=== PATIENT | male | born 1935 | race Caucasian/White ===

== ENCOUNTER 2019-12-03 10:06 | Outpatient (CLI) | payer MEDICARE, BC, SELFPAY ==
[2019-12-03 10:54] LABS: Hematocrit 42.6 % (42.0-52.0); Hemoglobin 13.5 g/dL (14.0-18.0); Mean Corpuscular HGB Conc 31.7 g/dl (32-36); Mean Corpuscular Hemoglobin 31.3 pg (26-34); Mean Corpuscular Volume 98.8 fl (80-100); Mean Platelet Volume 9.4 fl (7.4-10.4); Platelet Count Result 228 k/mm3 (150-375); Red Blood Count 4.31 M/mm3 (4.6-6.20); Red Cell Distribution Width 13.2 % (11.5-14.5); White Blood Count 5.5 K/mm3 (4.5-10.0)
[2019-12-03 10:58] LABS: Add Urine Microscopic? YES; Appearance Urine Clear (Clear); Bilirubin Urine Negative (Negative); Blood Urine 1+ (Negative); Color Urine Yellow (Yellow); Glucose Urine UA Negative (Negative); Ketones Urine Negative (Negative); Leukocyte Esterase Ur Negative LEU/UL (NEGATIVE); Nitrate Urine Negative (Negative); Protein Urine Negative (Negative); Specific Grav Ur 1.016 (1.001-1.035); Squamous Epithelial Cell Urine Rare /hpf (Few); Urobilinogen Urine Negative mg/dL (<2.0); WBC Urine 0-3 /hpf (0-3)
[2019-12-03 11:02] LABS: Alanine Aminotransferase 15 U/L (4-50); Albumin Level 3.9 g/dL (3.5-5.1); Alkaline Phosphatase 70 U/L (38-126); Aspartate Amino Transferase 25 U/L (17-59); Bilirubin,Total 0.7 mg/dL (0.2-1.3); Blood Urea Nitrogen 14 mg/dL (9-20); Calcium 9.3 mg/dL (8.4-10.2); Carbon Dioxide 28 mmol/L (22-30); Chloride 101 mmol/L (98-107); Cholesterol 167 mg/dL (0-200); Estimated Glomerular Filt Rate > 60; Glucose 102 mg/dL (75-110); HDL Direct 53 mg/dL; Potassium 4.1 mmol/L (3.4-5.0); Sodium 141 mmol/L (137-145); Triglycerides 168 mg/dL (<150)
[2019-12-03 11:13] LABS: LDL Cholesterol Direct 89 mg/dL
[2019-12-03 12:08] LABS: Folic Acid 17.2 ng/mL (2.76->20)
== END 2019-12-03 10:07 | disposition home or self-care (01) ==
PROVIDERS: PCP Family Medicine; Visit Provider Physician Assistant
DX: D50.0 Iron deficiency anemia secondary to blood loss (chronic) (principal); E53.8 Deficiency of other specified B group vitamins; E78.5 Hyperlipidemia, unspecified; I10 Essential (primary) hypertension; I25.10 Atherosclerotic heart disease of native coronary artery without angina pectoris
CPT/HCPCS: 36415; 80053; 80061; 81001; 82607; 82746; 85027

== ENCOUNTER 2020-05-12 10:04 | Outpatient (CLI) | payer MEDICARE, BC, SELFPAY ==
[2020-05-12 10:36] LABS: Basophils Percent Auto 0.4 % (0.2-1.2); Eosinophils Absolute Auto 0.2 K/mm3 (0-0.3); Eosinophils Percent Auto 3.4 % (0-4.4); Immature Granulocyte Absolute 0.03 K/mm3 (0.00-0.031); Immature Granulocyte Percent A 0.5 % (0-0.5); Lymphocytes Absolute Auto 1.43 K/mm3 (0.9-3.2); Lymphocytes Percent Auto 25.6 % (18.3-44.2); Mean Corpuscular HGB Conc 31.8 g/dl (32-36); Mean Corpuscular Hemoglobin 30.3 pg (26-34); Mean Corpuscular Volume 95.2 fl (80-100); Mean Platelet Volume 9.4 fl (7.4-10.4); Monocytes Absolute Auto 0.5 K/mm3 (0.1-0.6); Neutrophils Absolute Auto 3.4 K/mm3 (1.3-6.7); Neutrophils Percent Auto 61.1 % (45.5-73.1); Platelet Count Result 235 k/mm3 (150-375); Red Blood Count 4.62 M/mm3 (4.6-6.20); Red Cell Distribution Width 13.8 % (11.5-14.5); White Blood Count 5.6 K/mm3 (4.5-10.0)
[2020-05-12 10:43] LABS: Add Urine Microscopic? YES; Appearance Urine Clear (Clear); Bilirubin Urine Negative (Negative); Blood Urine 2+ (Negative); Color Urine Yellow (Yellow); Glucose Urine UA Negative (Negative); Ketones Urine Negative (Negative); Leukocyte Esterase Ur Negative LEU/UL (NEGATIVE); Mucus Urine Rare /lpf; Nitrate Urine Negative (Negative); Protein Urine Negative (Negative); Specific Grav Ur 1.013 (1.001-1.035); Squamous Epithelial Cell Urine Rare /hpf (Few); Urobilinogen Urine Negative mg/dL (<2.0); WBC Urine 0-3 /hpf (0-3)
[2020-05-12 11:25] LABS: Alanine Aminotransferase 13 U/L (4-50); Alkaline Phosphatase 77 U/L (38-126); Anion Gap 14.2 mmol/L (7-16); Aspartate Amino Transferase 22 U/L (17-59); Bilirubin,Total 0.7 mg/dL (0.2-1.3); Blood Urea Nitrogen 16 mg/dL (9-20); Calcium 9.1 mg/dL (8.4-10.2); Carbon Dioxide 27 mmol/L (22-30); Chloride 102 mmol/L (98-107); Estimated Glomerular Filt Rate > 60; Glucose 116 mg/dL (75-110); Potassium 4.2 mmol/L (3.4-5.0); Sodium 139 mmol/L (137-145)
[2020-05-12 11:51] LABS: Iron 87 ug/dL (49-181)
[2020-05-12 12:30] LABS: Folic Acid 12.9 ng/mL (2.76->20)
[2020-05-12 17:18] LABS: Percent Iron Saturation 33 % (20-50)
== END 2020-05-12 10:05 | disposition home or self-care (01) ==
PROVIDERS: PCP Family Medicine; Visit Provider Physician Assistant
DX: E53.8 Deficiency of other specified B group vitamins (principal); I10 Essential (primary) hypertension; D50.0 Iron deficiency anemia secondary to blood loss (chronic); R31.9 Hematuria, unspecified
CPT/HCPCS: 36415; 80053; 81001; 82607; 82728; 82746; 83540; 83550; 85025

== ENCOUNTER 2020-11-21 09:55 | Outpatient (CLI) | payer MEDICARE, BC, SELFPAY ==
[2020-11-21 10:32] LABS: Basophils Percent Auto 0.5 % (0.2-1.2); Eosinophils Absolute Auto 0.1 K/mm3 (0-0.3); Eosinophils Percent Auto 2.4 % (0-4.4); Hematocrit 43.4 % (42.0-52.0); Hemoglobin 13.7 g/dL (14.0-18.0); Immature Granulocyte Absolute 0.04 K/mm3 (0.00-0.031); Immature Granulocyte Percent A 0.7 % (0-0.5); Lymphocytes Percent Auto 16.9 % (18.3-44.2); Mean Corpuscular HGB Conc 31.6 g/dl (32-36); Mean Corpuscular Hemoglobin 30.9 pg (26-34); Mean Corpuscular Volume 97.7 fl (80-100); Mean Platelet Volume 9.1 fl (7.4-10.4); Monocytes Absolute Auto 0.4 K/mm3 (0.1-0.6); Monocytes Percent Auto 6.4 % (2.6-8.5); Neutrophils Absolute Auto 4.3 K/mm3 (1.3-6.7); Neutrophils Percent Auto 73.1 % (45.5-73.1); Platelet Count Result 263 k/mm3 (150-375); Red Blood Count 4.44 M/mm3 (4.6-6.20); Red Cell Distribution Width 12.7 % (11.5-14.5); White Blood Count 5.9 K/mm3 (4.5-10.0)
[2020-11-21 11:05] LABS: Alanine Aminotransferase 14 U/L (4-50); Albumin Level 4.1 g/dL (3.5-5.1); Alkaline Phosphatase 79 U/L (38-126); Anion Gap 6 mmol/L (8-16); Aspartate Amino Transferase 22 U/L (17-59); Bilirubin,Total 0.5 mg/dL (0.2-1.3); Blood Urea Nitrogen 16 mg/dL (9-20); Calcium 9.3 mg/dL (8.4-10.2); Carbon Dioxide 29 mmol/L (22-30); Chloride 108 mmol/L (98-107); Estimated Glomerular Filt Rate > 60; Glucose 93 mg/dL (75-110); Potassium 3.9 mmol/L (3.4-5.0); Sodium 143 mmol/L (137-145)
[2020-11-21 12:13] LABS: Hemoglobin A1C 5.2 % (<5.7)
[2020-11-21 12:15] LABS: Folic Acid > 20.0 ng/mL (2.76->20)
[2020-11-21 12:36] LABS: Iron 64 ug/dL (49-181)
[2020-11-21 12:46] LABS: Percent Iron Saturation 22 % (20-50)
== END 2020-11-21 09:56 | disposition home or self-care (01) ==
PROVIDERS: PCP Family Medicine; Visit Provider Physician Assistant
DX: D50.0 Iron deficiency anemia secondary to blood loss (chronic) (principal); E53.8 Deficiency of other specified B group vitamins; E78.5 Hyperlipidemia, unspecified; I48.0 Paroxysmal atrial fibrillation; I50.9 Heart failure, unspecified; K21.9 Gastro-esophageal reflux disease without esophagitis; R73.01 Impaired fasting glucose
CPT/HCPCS: 36415; 80053; 82607; 82728; 82746; 83036; 83540; 83550; 85025

== ENCOUNTER 2020-12-15 13:43 | Outpatient (CLI) | payer MEDICARE, BC, SELFPAY | END 2020-12-15 13:44 | disposition home or self-care (01) | LOC: ANHCOVIDVC 13:43 | PROVIDERS: PCP Family Medicine | DX: Z23 Encounter for immunization (principal) | CPT/HCPCS: 0001A; 91300 ==

== ENCOUNTER 2021-01-05 13:46 | Outpatient (CLI) | payer MEDICARE, BC, SELFPAY | END 2021-01-05 13:47 | disposition home or self-care (01) | LOC: ANHCOVIDVC 13:47 | PROVIDERS: PCP Family Medicine | DX: Z23 Encounter for immunization (principal) | CPT/HCPCS: 0002A; 91300 ==

== ENCOUNTER 2021-05-23 13:38 | Outpatient (CLI) | payer MEDICARE, BC, SELFPAY ==
[2021-05-23 14:13] LABS: Basophils Percent Auto 0.3 % (0.2-1.2); Eosinophils Absolute Auto 0.1 K/mm3 (0-0.3); Eosinophils Percent Auto 1.5 % (0-4.4); Hemoglobin 14.1 g/dL (14.0-18.0); Immature Granulocyte Absolute 0.03 K/mm3 (0.00-0.031); Immature Granulocyte Percent A 0.4 % (0-0.5); Lymphocytes Absolute Auto 1.41 K/mm3 (0.9-3.2); Lymphocytes Percent Auto 20.9 % (18.3-44.2); Mean Corpuscular HGB Conc 31.3 g/dl (32-36); Mean Corpuscular Hemoglobin 31.5 pg (26-34); Mean Corpuscular Volume 100.7 fl (80-100); Mean Platelet Volume 9.2 fl (7.4-10.4); Monocytes Absolute Auto 0.5 K/mm3 (0.1-0.6); Monocytes Percent Auto 7.7 % (2.6-8.5); Neutrophils Absolute Auto 4.7 K/mm3 (1.3-6.7); Neutrophils Percent Auto 69.2 % (45.5-73.1); Platelet Count Result 258 k/mm3 (150-375); Red Blood Count 4.47 M/mm3 (4.6-6.20); Red Cell Distribution Width 13.2 % (11.5-14.5); White Blood Count 6.8 K/mm3 (4.5-10.0)
[2021-05-23 14:26] LABS: Alanine Aminotransferase 15 U/L (4-50); Albumin Level 4.5 g/dL (3.5-5.1); Alkaline Phosphatase 77 U/L (38-126); Anion Gap 10 mmol/L (8-16); Aspartate Amino Transferase 24 U/L (17-59); Bilirubin,Total 0.7 mg/dL (0.2-1.3); Blood Urea Nitrogen 16 mg/dL (9-20); Calcium 9.2 mg/dL (8.4-10.2); Carbon Dioxide 26 mmol/L (22-30); Chloride 101 mmol/L (98-107); Estimated Glomerular Filt Rate > 60; Glucose 94 mg/dL (65-110); Potassium 4.1 mmol/L (3.4-5.0); Sodium 137 mmol/L (137-145)
== END 2021-05-23 13:39 | disposition home or self-care (01) ==
PROVIDERS: PCP Family Medicine; Visit Provider Nurse Practitioner Family
DX: D50.0 Iron deficiency anemia secondary to blood loss (chronic) (principal); I10 Essential (primary) hypertension
CPT/HCPCS: 36415; 80053; 85025

== ENCOUNTER 2021-09-21 11:36 | Outpatient (CLI) | payer MEDICARE, BC, SELFPAY ==
[2021-09-21 12:19] LABS: Alanine Aminotransferase 14 U/L (4-50); Albumin Level 4.3 g/dL (3.5-5.1); Alkaline Phosphatase 79 U/L (38-126); Anion Gap 7 mmol/L (8-16); Aspartate Amino Transferase 23 U/L (17-59); Bilirubin,Total 0.7 mg/dL (0.2-1.3); Blood Urea Nitrogen 19 mg/dL (9-20); Calcium 9.3 mg/dL (8.4-10.2); Carbon Dioxide 28 mmol/L (22-30); Chloride 99 mmol/L (98-107); Estimated Glomerular Filt Rate > 60; Glucose 94 mg/dL (65-110); Potassium 4.7 mmol/L (3.4-5.0); Sodium 134 mmol/L (137-145)
== END 2021-09-21 11:37 | disposition home or self-care (01) ==
LOC: ANHLAB 11:40
PROVIDERS: PCP Family Medicine; Visit Provider Nurse Practitioner Family
DX: I11.0 Hypertensive heart disease with heart failure (principal)
CPT/HCPCS: 36415; 80053

== ENCOUNTER 2022-03-22 11:38 | Outpatient (CLI) | payer MEDICARE, BC, SELFPAY ==
[2022-03-22 12:12] LABS: Basophils Percent Auto 0.3 % (0.2-1.2); Eosinophils Absolute Auto 0.1 K/mm3 (0-0.3); Eosinophils Percent Auto 1.9 % (0-4.4); Hematocrit 41.9 % (42.0-52.0); Hemoglobin 13.4 g/dL (14.0-18.0); Immature Granulocyte Absolute 0.02 K/mm3 (0.00-0.031); Immature Granulocyte Percent A 0.3 % (0-0.5); Lymphocytes Absolute Auto 0.97 K/mm3 (0.9-3.2); Lymphocytes Percent Auto 15.4 % (18.3-44.2); Mean Corpuscular Hemoglobin 31.8 pg (26-34); Mean Corpuscular Volume 99.5 fl (80-100); Mean Platelet Volume 8.9 fl (7.4-10.4); Monocytes Absolute Auto 0.5 K/mm3 (0.1-0.6); Monocytes Percent Auto 8.4 % (2.6-8.5); Neutrophils Absolute Auto 4.6 K/mm3 (1.3-6.7); Neutrophils Percent Auto 73.7 % (45.5-73.1); Platelet Count Result 239 k/mm3 (150-375); Red Blood Count 4.21 M/mm3 (4.6-6.20); Red Cell Distribution Width 13.6 % (11.5-14.5); White Blood Count 6.3 K/mm3 (4.5-10.0)
[2022-03-22 12:18] LABS: Appearance Urine Slightly Cloudy (Clear); Bilirubin Urine Negative (Negative); Blood Urine 2+ (Negative); Color Urine Yellow (Yellow); Glucose Urine UA Negative (Negative); Ketones Urine Negative (Negative); Leukocyte Esterase Ur Negative LEU/UL (NEGATIVE); Nitrate Urine Negative (Negative); Protein Urine Negative (Negative); Urobilinogen Urine 0.2 mg/dL (<2.0)
[2022-03-22 12:21] LABS: Bacteria Urine Trace /hpf; RBC Urine 0-2 /hpf (0-2); Squamous Epithelial Cell Urine Rare /hpf (Few); WBC Urine 0-3 /hpf (0-3)
[2022-03-22 12:22] LABS: Add Urine Microscopic? YES
[2022-03-22 12:24] LABS: Hemoglobin A1C 5.3 % (<5.7)
[2022-03-22 12:27] LABS: Alanine Aminotransferase 13 U/L (6-50); Alkaline Phosphatase 74 U/L (38-126); Anion Gap 5 mmol/L (8-16); Aspartate Amino Transferase 18 U/L (17-59); Bilirubin,Total 0.5 mg/dL (0.2-1.3); Blood Urea Nitrogen 15 mg/dL (9-20); Calcium 8.6 mg/dL (8.4-10.2); Carbon Dioxide 29 mmol/L (22-30); Chloride 107 mmol/L (98-107); Cholesterol 156 mg/dL (0-200); Estimated Glomerular Filt Rate > 60; Glucose 80 mg/dL (65-110); HDL Direct 64 mg/dL; Potassium 3.8 mmol/L (3.4-5.0); Sodium 141 mmol/L (137-145); Triglycerides 131 mg/dL (<150)
[2022-03-22 12:39] LABS: LDL Cholesterol Direct 61 mg/dL
== END 2022-03-22 11:39 | disposition home or self-care (01) ==
LOC: ANHLAB 11:42
PROVIDERS: PCP Family Medicine; Visit Provider Nurse Practitioner Family
DX: D50.0 Iron deficiency anemia secondary to blood loss (chronic) (principal); E03.9 Hypothyroidism, unspecified; I25.10 Atherosclerotic heart disease of native coronary artery without angina pectoris; I50.9 Heart failure, unspecified; N40.0 Benign prostatic hyperplasia without lower urinary tract symptoms; R73.01 Impaired fasting glucose; E78.2 Mixed hyperlipidemia; I11.0 Hypertensive heart disease with heart failure
CPT/HCPCS: 36415; 80053; 80061; 81001; 83036; 84443; 85025

== ENCOUNTER 2022-09-17 11:37 | Outpatient (CLI) | payer MEDICARE, BC, SELFPAY ==
[2022-09-17 12:41] LABS: Basophils Percent Auto 0.3 % (0.2-1.2); Eosinophils Absolute Auto 0.3 K/mm3 (0-0.3); Eosinophils Percent Auto 4.3 % (0-4.4); Hematocrit 38.8 % (42.0-52.0); Hemoglobin 12.7 g/dL (14.0-18.0); Immature Granulocyte Absolute 0.01 K/mm3 (0.00-0.031); Immature Granulocyte Percent A 0.2 % (0-0.5); Lymphocytes Absolute Auto 1.02 K/mm3 (0.9-3.2); Lymphocytes Percent Auto 16.9 % (18.3-44.2); Mean Corpuscular HGB Conc 32.7 g/dl (32-36); Mean Corpuscular Hemoglobin 32.6 pg (26-34); Mean Corpuscular Volume 99.7 fl (80-100); Mean Platelet Volume 9.3 fl (7.4-10.4); Monocytes Absolute Auto 0.4 K/mm3 (0.1-0.6); Monocytes Percent Auto 7.1 % (2.6-8.5); Neutrophils Absolute Auto 4.3 K/mm3 (1.3-6.7); Neutrophils Percent Auto 71.2 % (45.5-73.1); Platelet Count Result 251 k/mm3 (150-375); Red Blood Count 3.89 M/mm3 (4.6-6.20); Red Cell Distribution Width 13.5 % (11.5-14.5)
[2022-09-17 12:59] LABS: Alanine Aminotransferase 14 U/L (6-50); Alkaline Phosphatase 82 U/L (38-126); Anion Gap 7 mmol/L (8-16); Aspartate Amino Transferase 22 U/L (17-59); Bilirubin,Total 0.6 mg/dL (0.2-1.3); Blood Urea Nitrogen 15 mg/dL (9-20); Calcium 8.4 mg/dL (8.4-10.2); Carbon Dioxide 28 mmol/L (22-30); Chloride 107 mmol/L (98-107); Estimated Glomerular Filt Rate > 60; Glucose 92 mg/dL (65-110); Sodium 142 mmol/L (137-145)
[2022-09-17 14:05] LABS: Folic Acid 15.6 ng/mL (2.76->20)
== END 2022-09-17 11:38 | disposition home or self-care (01) ==
PROVIDERS: PCP Family Medicine; Visit Provider Family Medicine
DX: R53.83 Other fatigue (principal); D50.0 Iron deficiency anemia secondary to blood loss (chronic); E53.8 Deficiency of other specified B group vitamins; I10 Essential (primary) hypertension
CPT/HCPCS: 36415; 80053; 82607; 82746; 84443; 85025

== ENCOUNTER 2023-05-01 11:47 | Outpatient (CLI) | payer MEDICARE, BC, SELFPAY ==
[2023-05-01 12:33] LABS: Hematocrit 40.8 % (42.0-52.0); Hemoglobin 13.1 g/dL (14.0-18.0); Mean Corpuscular HGB Conc 32.1 g/dl (32-36); Mean Corpuscular Hemoglobin 31.1 pg (26-34); Mean Corpuscular Volume 96.9 fl (80-100); Platelet Count Result 252 k/mm3 (150-375); Red Blood Count 4.21 M/mm3 (4.6-6.20); Red Cell Distribution Width 13.3 % (11.5-14.5); White Blood Count 5.4 K/mm3 (4.5-10.0)
[2023-05-01 12:34] LABS: Appearance Urine Clear (Clear); Bacteria Urine None Seen /hpf; Bilirubin Urine Negative (Negative); Blood Urine 1+ (Negative); Color Urine Yellow (Yellow); Glucose Urine UA Negative (Negative); Ketones Urine Negative (Negative); Leukocyte Esterase Ur Negative LEU/UL (NEGATIVE); Nitrate Urine Negative (Negative); Non Pathogenic Casts 0-2; Protein Urine Negative (Negative); Specific Grav Ur 1.009 (1.001-1.035); Squamous Epithelial Cell Urine None seen /hpf (Few); Urobilinogen Urine 0.2 mg/dL (<2.0); WBC Urine 0-5 /hpf (0-3); pH Urine 5.5 (5.0-9.0)
[2023-05-01 12:43] LABS: Alanine Aminotransferase 17 U/L (6-50); Alkaline Phosphatase 59 U/L (38-126); Anion Gap 5 mmol/L (8-16); Aspartate Amino Transferase 26 U/L (17-59); Bilirubin,Total 0.7 mg/dL (0.2-1.3); Blood Urea Nitrogen 17 mg/dL (9-20); Calcium 8.5 mg/dL (8.4-10.2); Carbon Dioxide 31 mmol/L (22-30); Chloride 103 mmol/L (98-107); Cholesterol 149 mg/dL (0-200); Estimated Glomerular Filt Rate > 60; Glucose 106 mg/dL (65-110); HDL Direct 65 mg/dL; Potassium 4.1 mmol/L (3.4-5.0); Sodium 139 mmol/L (137-145); Triglycerides 105 mg/dL (<150)
[2023-05-01 12:54] LABS: LDL Cholesterol Direct 55 mg/dL
[2023-05-01 13:16] LABS: Add Urine Microscopic? YES
[2023-05-01 17:49] LABS: Hemoglobin A1C 5.3 % (<5.7)
== END 2023-05-01 11:48 | disposition home or self-care (01) ==
LOC: ANHLAB 11:50
PROVIDERS: PCP Family Medicine; Visit Provider Family Medicine
DX: R73.01 Impaired fasting glucose (principal); E78.5 Hyperlipidemia, unspecified; I10 Essential (primary) hypertension
CPT/HCPCS: 36415; 80053; 80061; 81001; 83036; 84443; 85027

== ENCOUNTER 2023-11-06 12:05 | Outpatient (CLI) | payer MEDICARE, BC, SELFPAY ==
[2023-11-06 13:38] LABS: Alanine Aminotransferase 13 U/L (6-50); Albumin Level 4.1 g/dL (3.5-5.1); Alkaline Phosphatase 94 U/L (38-126); Anion Gap 6 mmol/L (8-16); Aspartate Amino Transferase 22 U/L (17-59); Bilirubin,Total 0.7 mg/dL (0.2-1.3); Blood Urea Nitrogen 18 mg/dL (9-20); Calcium 8.9 mg/dL (8.4-10.2); Carbon Dioxide 30 mmol/L (22-30); Chloride 104 mmol/L (98-107); Estimated Glomerular Filt Rate > 60; Glucose 98 mg/dL (65-110); Potassium 4.1 mmol/L (3.4-5.0); Sodium 140 mmol/L (137-145)
== END 2023-11-06 12:06 | disposition home or self-care (01) ==
PROVIDERS: PCP Family Medicine; Visit Provider Family Medicine
DX: I10 Essential (primary) hypertension (principal)
CPT/HCPCS: 36415; 80053

== ENCOUNTER 2024-05-27 11:04 | Outpatient (CLI) | payer MEDICARE, BC, SELFPAY ==
[2024-05-27 11:23] LABS: Hemoglobin 13.1 g/dL (14.0-18.0); Mean Corpuscular HGB Conc 32.8 g/dl (32-36); Mean Corpuscular Hemoglobin 32.3 pg (26-34); Mean Corpuscular Volume 98.5 fl (80-100); Mean Platelet Volume 8.7 fl (7.4-10.4); Platelet Count Result 234 k/mm3 (150-375); Red Blood Count 4.06 M/mm3 (4.6-6.20); Red Cell Distribution Width 13.8 % (11.5-14.5); White Blood Count 5.7 K/mm3 (4.5-10.0)
[2024-05-27 11:39] LABS: Alanine Aminotransferase 13 U/L (6-50); Albumin Level 4.1 g/dL (3.5-5.1); Alkaline Phosphatase 76 U/L (38-126); Anion Gap 7 mmol/L (4-12); Aspartate Amino Transferase 23 U/L (17-59); Bilirubin,Total 0.6 mg/dL (0.2-1.3); Blood Urea Nitrogen 17 mg/dL (9-20); Calcium 8.9 mg/dL (8.4-10.2); Carbon Dioxide 30 mmol/L (22-30); Chloride 101 mmol/L (98-107); Cholesterol 144 mg/dL (0-200); Estimated Glomerular Filt Rate > 60; Glucose 86 mg/dL (65-110); HDL Direct 58 mg/dL; Potassium 4.2 mmol/L (3.4-5.0); Sodium 138 mmol/L (137-145); Triglycerides 137 mg/dL (<150)
[2024-05-27 11:46] LABS: Add Urine Microscopic? YES; Appearance Urine Clear (Clear); Bacteria Urine None Seen /hpf; Bilirubin Urine Negative (Negative); Blood Urine 1+ (Negative); Color Urine Yellow (Yellow); Glucose Urine UA Negative (Negative); Ketones Urine Negative (Negative); Leukocyte Esterase Ur Negative LEU/UL (Negative); Nitrate Urine Negative (Negative); Non Pathogenic Casts 0-2; Protein Urine Negative (Negative); Specific Grav Ur 1.008 (1.001-1.035); Squamous Epithelial Cell Urine None Seen /hpf (Few); Urobilinogen Urine 0.2 mg/dL (<2.0); WBC Urine 0-5 /hpf (0-3); pH Urine 5.5 (5.0-9.0)
[2024-05-27 11:50] LABS: LDL Cholesterol Direct 56 mg/dL
== END 2024-05-27 11:05 | disposition home or self-care (01) ==
PROVIDERS: PCP Family Medicine; Visit Provider Family Medicine
DX: D50.0 Iron deficiency anemia secondary to blood loss (chronic) (principal); E78.5 Hyperlipidemia, unspecified; I10 Essential (primary) hypertension; I50.9 Heart failure, unspecified
CPT/HCPCS: 36415; 80053; 80061; 81001; 84443; 85027

== ENCOUNTER 2024-06-10 15:30 | Outpatient (CLI) | payer MEDICARE, BC, SELFPAY ==
--- NOTE | ~2024-06-10 | US_ITS ---
EXAMINATION: US soft tissue groin LT DATE: 06/10/2024 16:13 INDICATION: Left inguinal hernia. TECHNIQUE: Multiple grayscale and Doppler ultrasound images of the left groin were obtained. COMPARISON: CT abdomen and pelvis 01/15/2018 FINDINGS: There is a left inguinal hernia containing fat. IMPRESSION: 1. Left inguinal hernia containing fat. Reviewed, dictated and finalized at location A.
== END 2024-06-10 15:31 | disposition home or self-care (01) ==
PROVIDERS: PCP Family Medicine; Visit Provider Physician Assistant
DX: K40.90 Unilateral inguinal hernia, without obstruction or gangrene, not specified as recurrent (principal); R19.09 Other intra-abdominal and pelvic swelling, mass and lump
CPT/HCPCS: 76882

== ENCOUNTER 2024-07-22 08:44 | Outpatient (CLI) | payer MEDICARE, BC, SELFPAY ==
--- NOTE | ~2024-07-22 | US_ITS ---
EXAMINATION: US arterial ankle brachial ind DATE: 07/22/2024 09:58 INDICATION: Peripheral vascular disease, unspecified. Claudication. TECHNIQUE: Segmental pressures and plethysmographic and Doppler waveforms of the brachial and lower e xtremity arteries were obtained. COMPARISON: None. FINDINGS: Right and left brachial artery pressures of 147 mm Hg and 152 mm Hg, respectively, are concordant (no rmal difference <= 30 mmHg). The right ankle-brachial index (LUCERO) is 0.93 (normal >= 0.9-1.0). The right great toe-brachial index (TBI) is 0.34 (normal >= 0.65). Arterial Doppler waveforms are monophasic at the ankle. The left LUCERO is 0.93. The left TBI is 0.17. Arterial Doppler waveforms are biphasic at the ankle. IMPRESSION: 1. Mildly decreased ABIs, consistent with arterial occlusive disease. Reviewed, dictated and finalized at location A.
== END 2024-07-22 08:45 | disposition home or self-care (01) ==
PROVIDERS: PCP Family Medicine; Visit Provider Family Medicine
DX: R94.39 Abnormal result of other cardiovascular function study (principal); I73.9 Peripheral vascular disease, unspecified
CPT/HCPCS: 93922

== ENCOUNTER 2024-08-03 09:20 | Outpatient (CLI) | payer MEDICARE, BC, SELFPAY ==
--- NOTE | ~2024-08-03 | XR_ITS ---
Clinical Indication: Preoperative evaluation PA and lateral views of the chest: Comparison: 12/23/2017 Findings: There is mild hazy opacity at the left lung base, nonspecific. Right lung clear.. Cardiome diastinal silhouette is stable, status post aortic valve replacement and possible CABG. Moderate comp ression fracture of T12 noted. Impression: Focal hazy left basilar airspace opacity. Correlate for focal pneumonitis versus chronic postinflamma tory change. Possible COPD. Prior cardiac surgery, as above. T12 compression fracture. Reviewed, dictated and finalized at location . Impression: Focal hazy left basilar airspace opacity. Correlate for focal pneumonitis versu s chronic postinflammatory change. Possible COPD. Prior cardiac surgery, as above. T12 compression fracture.
--- NOTE | 2024-08-03 09:30 | ECG_ITS ---
Test Date: 2024-08-03 09:51:04 Measurements Intervals [place] Rate: 63 P: -17 SC: 161 QRS: -47 QRSD: 118 T: 14 QT: 369 QTc: 379 Interpretive Statements SINUS RHYTHM PATTERN CONSISTENT WITH PULMONARY DISEASE LEFT ANTERIOR FASCICULAR BLOCK [QRS AXIS <= -45, QR IN I, RS IN II] NONSPECIFIC T-WAVE ABNORMALITY ABNORMAL ECG No previous ECG available for comparison Electronically Signed On 08-03-2024 10:48:19 CDT by Jez Guo M.D.
[2024-08-03 10:00] LABS: Basophils Percent Auto 0.4 % (0.2-1.2); Eosinophils Absolute Auto 0.2 K/mm3 (0-0.3); Eosinophils Percent Auto 3.4 % (0-4.4); Hematocrit 37.9 % (42.0-52.0); Hemoglobin 12.2 g/dL (14.0-18.0); Immature Granulocyte Absolute 0.02 K/mm3 (0.00-0.031); Immature Granulocyte Percent A 0.4 % (0-0.5); Lymphocytes Absolute Auto 0.94 K/mm3 (0.9-3.2); Lymphocytes Percent Auto 16.7 % (18.3-44.2); Mean Corpuscular HGB Conc 32.2 g/dl (32-36); Mean Corpuscular Volume 99.5 fl (80-100); Mean Platelet Volume 8.9 fl (7.4-10.4); Monocytes Absolute Auto 0.6 K/mm3 (0.1-0.6); Monocytes Percent Auto 9.8 % (2.6-8.5); Neutrophils Absolute Auto 3.9 K/mm3 (1.3-6.7); Neutrophils Percent Auto 69.3 % (45.5-73.1); Platelet Count Result 242 k/mm3 (150-375); Red Blood Count 3.81 M/mm3 (4.6-6.20); White Blood Count 5.6 K/mm3 (4.5-10.0)
[2024-08-03 10:15] LABS: Anion Gap 6 mmol/L (4-12); Blood Urea Nitrogen 13 mg/dL (9-20); Calcium 8.9 mg/dL (8.4-10.2); Carbon Dioxide 30 mmol/L (22-30); Chloride 102 mmol/L (98-107); Estimated Glomerular Filt Rate > 60; Glucose 108 mg/dL (65-110); Potassium 3.6 mmol/L (3.4-5.0); Sodium 138 mmol/L (137-145)
== END 2024-08-03 09:21 | disposition home or self-care (01) ==
LOC: ANHSURGERY 09:31
PROVIDERS: PCP Family Medicine; Visit Provider Surgery
DX: K40.90 Unilateral inguinal hernia, without obstruction or gangrene, not specified as recurrent (principal)
CPT/HCPCS: 36415; 71046; 80048; 85025; 86850; 86900; 86901; 93005

== ENCOUNTER 2024-08-06 01:39 | Day surgery (SDC) | payer MEDICARE, BC, SELFPAY ==
[2024-07-30 12:28] VITALS: BMI 22.4
--- NOTE | 2024-07-30 12:58 | PC.NURSE ---
Report to the Outpatient Waiting Room, entrance under the green pavilion located off [facility], at time ___12:30PM____ on date ____08/06/24___. Planned Procedure Time: ___2:30PM .? Time changes happen often and if your time is changed the preop area will call you the afternoon before. - You and your visitor will be asked to self-screen and do not enter if you have any COVID symptoms. Please call surgeon if you need to reschedule. - A mask is optional within the hospital at this time. Patients may have clear liquids (water, carbonated beverages, clear teas, apple juice) until 11:30AM -3 hours prior to surgery with a maximum of 20 ounces. - No food from midnight until time of surgery and no smoking. Take only the following medications with a SIP of water on the morning of surgery: AMIODARONE & METOPROLOL DO NOT STOP ANY OF YOUR OTHER PRESCRIPTION MEDICATIONS PRIOR TO SURGERY EXCEPT THE FOLLOWING Medications to discontinue per physician HOLD ALL VITAMINS/SUPPLEMENTS 3 DAYS PRE-OP PER ANESTHESIA Date to take last dose 08/02/24 Please no make-up, nail afghan, hairspray, perfume, deodorant, or body powder the day of surgery.? No jewelry (including any body piercings) or valuables the day of surgery, leave them at home.? Please take a shower or bath the night before, or the morning of, surgery with an antibacterial soap.? Wear comfortable, loose fitting clothing.? - Jewelry must be removed prior to entering the operating room.? Rings and piercings that are not removed may be cut off. - The hospital will not accept responsibility for valuables.? - Please leave all valuables, including medications, at home the day of surgery. If you are going home after surgery, a licensed regional driver must drive you home.? - NO public transportation without another adult if you receive anesthesia. - We recommend that an adult stay with you for 24 hours following discharge. - We also recommend that you do not drive, make important decision, drink alcoholic beverages, or take any drugs that were not prescribed by your health care provider for at least 24 hours after your discharge time. Follow any additional instructions given to you from your surgeon. Telephone instructions given to ____PATIENT'S , BEE and asked if any additional questions and then verbalized understanding. Patient advised to call surgeon office or pre surgery nurse liaison [phone] if any additional questions.
[2024-08-06] VITALS (7 sets, daily range): BP systolic 138–177; BP diastolic 61–82; PULSE 49–57; RESP 13–18; TEMP 36.3–36.9; O2SAT 96–99
--- NOTE | 2024-08-06 08:22 | PM.SD2 ---
Same Day Admit/Disch: HPI History of Present Illness Chief complaint: left inguinal hernia Narrative: Kleber Meehan is a 89 year old male who noticed may fairly large bulge in the left inguinal area this summer. He was seen in the office and found to have a large reducible left inguinal hernia. He has a history of a previous right inguinal hernia repair in 2006. He is taken to surgery at this time for robotic laparoscopic repair of his left inguinal hernia with mesh. [facility] Past Medical History Medical History AAA (abdominal aortic aneurysm) Anemia due to blood loss, chronic Arteriovenous malformation Arthritis Franco's esophagus BPH (benign prostatic hyperplasia) CAD (coronary artery disease) CHF (congestive heart failure) COPD (chronic obstructive pulmonary disease) GERD (gastroesophageal reflux disease) HTN (hypertension) Hydrocele Paroxysmal A-fib Vitamin B12 deficiency Surgical History Surgical History H/O cataract removal with insertion of prosthetic lens H/O hernia repair Hx of appendectomy Hx of CABG S/P aortic valve replacement Family History Family History Sibling Hypertension Carcinoma of colon Family history of coronary artery disease Father Carcinoma of colon Family history of pancreatic cancer Mother Family history of coronary artery disease Other Cerebrovascular accident Social History Social History Social History: Smoking packs per day: 1 Smoking cigarettes per day: 20.0 Years smoked: 65 Smoking pack-years: 65.00 Smoking status: Current every day smoker Tobacco type: cigarettes Second hand tobacco smoke exposure: No Additional smoking assessment comments: APPROX 1/4-1/2 PACK/DAY CURRENTLY Alcohol intake: current Drinks per week: 14 Substance use: never Substance use type: does not use Current Housing: Decline to Answer Concerned About Future Housing: Decline to Answer Difficulty Paying Gas/Electric Bills: Decline to Answer Difficulty Paying for Meds: Decline to Answer Currently Unemployed: Decline to Answer Education: Decline to Answer Difficulty w/ Childcare or Family Care: Decline to Answer Living arrangements: with family Additional living arrangements comments: Occupation/Education: retired Gender identity (if verbalized by the patient): Male Sexual Orientation (if Verbalized by the Patient): Straight or Heterosexual Spiritual care concerns: No Same Day Admit/Disch: Med Pre-admit Medications Home Medications Medication Instructions Recorded Confirmed Type amiodarone 200 mg tablet 200 mg PO DAILY 11/23/19 08/06/24 History aspirin 81 mg tablet,delayed 81 mg PO DAILY 11/23/19 08/06/24 History release atorvastatin 10 mg tablet 10 mg PO DAILY 11/23/19 07/30/24 History cyanocobalamin (vitamin B-12) 500 500 mcg PO DAILY 11/23/19 08/06/24 History mcg tablet ferrous sulfate 325 mg (65 mg 325 mg PO DAILY 11/23/19 08/06/24 History iron) tablet furosemide 20 mg tablet 20 mg PO QAM 11/23/19 07/30/24 History metoprolol succinate 25 mg 25 mg PO QAM 11/23/19 08/06/24 History tablet,extended release 24 hr tamsulosin 0.4 mg capsule See Rx Instructions .Route 02/15/24 07/30/24 Rx .COMPLEX #90 caps omeprazole 40 mg capsule,delayed 40 mg PO DAILY #90 caps 06/08/24 07/30/24 Rx release ascorbic acid (vitamin C) 1,000 mg 1 g PO DAILY 07/30/24 08/06/24 History capsule lisinopril 20 mg tablet 20 mg PO HS 07/30/24 07/30/24 History tramadol 50 mg tablet 50 mg PO Q6H PRN pain #10 tabs 08/06/24 Rx Review of Systems Review of Systems All systems reviewed & are unremarkable except as noted in HPI and below (HPI) Exam Const: General: comfortable, no acute distress, alert and awake HENMT: Head: normocephalic and atraumatic Mouth: Yes Normal oral and palatal mucosa present Eyes: Conjunctivae: conjunctivae normal Pupils: Equal, round and reactive pupils present EOM: EOMs intact bilaterally Neck: Neck: normal visual inspection, no lymphadenopathy and nontender Resp: Effort & Inspection: normal respiratory effort Auscultation: clear to auscultation bilaterally Cardio: Rate: regular rate Rhythm: regular rhythm Heart sounds: no gallops, no murmurs and no rubs GI: Inspection: non-distended GI Palp: Yes Soft to palpation, No Tenderness to palpation present (GI), No Hepatomegaly present and No Splenomegaly present : Male General Exam: Yes hernia (Large reducible left inguinal hernia, no right inguinal hernia) Penis: Yes normal penis Scrotum: scrotum normal Testes: Testes normal Skin: Lesions: no lesions Rashes: no rashes Neuro: General: no focal motor deficits and CN's II-XI intact bilaterally Cranial nerves: Yes Equal, round and reactive pupils present, Yes Bilaterally intact EOM present, Yes facial symmetry and Yes Midline tongue present Speech: normal speech Motor exam (neuro): 5/5 motor strength present throughout and Motor abnormalities not present Extrem: General: no clubbing, cyanosis or edema and edema Psych: Affect: normal affect Thought process: Normal thought process present Insight: Good insight present (Psych) DS: Summary Time Spent with Patient Time attestation: Total time spent providing and/or coordinating discharge services: DS: Admitting Diagnosis Discharge Date 08/06/2024 Admitting Diagnosis Reducible, symptomatic large left inguinal hernia-plan to proceed with robotic laparoscopic repair under general anesthesia. The procedure, risks, benefits, alternatives have been discussed. The usual length of the surgery and length of recovery has been discussed. Patient understands this will be done laparoscopically and that mesh will be used. All questions were answered. He understands and agrees to go ahead. COPD CHF History of coronary bypass graft BPH with obstruction-takes tamsulosin DS: Discharge Diagnosis Discharge Diagnosis (1) Left inguinal hernia: Code(s): K40.90 - Unilateral inguinal hernia, without obstruction or gangrene, not specified as recurrent Status: Chronic Assessment and Plan: Patient underwent robotic laparoscopic repair with mesh per Dr. Charles 08/06/2024 Discharge Plan Discharge Patient Disposition: Home, Self-Care Discharge Instructions: 1. May shower the day after surgery over incisions. 2. Call office for: -Wound increasingly painful or bleeding -Vomiting -Fever of greater than 101 degrees 3. Wear scrotal support during the day for 1 week. Remove for showering/bathing or to sleep. 4. If no bowel movement for three days, take 1 oz. (30 ml) Milk of Magnesia, if no results, take Fleets enema. 5. No heavy lifting > 15-20 pounds for 2 weeks. 6. No driving for 3 days or while taking narcotic pain medications. 7. Up walking 10-30 minutes three times per day. 8. Resume previous home medications. 9. Follow-up 10-14 days in office for wound check or as previously scheduled. 10. Oral pain medication prescription has been sent to your pharmacy. OK to take Tylenol ES as well. 11. NUTRITION: Start out by drinking fluids and increase your diet as tolerated. If you experience nausea, try dry toast, crackers, and 7-UP. If nausea or vomiting persists, contact your surgeon?s office. Stand Alone Forms: General Discharge Instructions Follow-up/Referrals: Sharad Charles MD [Physician] - 2 Weeks (Call for appointment unless you already have an appointment.) Discharge Medications: New tramadol 50 mg tablet 50 mg PO Q6H PRN (Reason: pain) Qty: 10 0RF Continued ferrous sulfate 325 mg (65 mg iron) tablet 325 mg PO DAILY cyanocobalamin (vitamin B-12) 500 mcg tablet 500 mcg PO DAILY Patient Comments: take two tabs by mouth daily metoprolol succinate 25 mg tablet extended release 24 hr 25 mg PO QAM furosemide 20 mg tablet 20 mg PO QAM Patient Comments: QAM atorvastatin 10 mg tablet 10 mg PO DAILY Patient Comments: HS amiodarone 200 mg tablet 200 mg PO DAILY Patient Comments: AM aspirin 81 mg tablet,delayed release (DR/EC) 81 mg PO DAILY lisinopril 20 mg tablet 20 mg PO HS Rx Instructions: Take 1 tablet by mouth once daily ascorbic acid (vitamin C) 1,000 mg Capsule 1 g PO DAILY tamsulosin 0.4 mg capsule See Rx Instructions .ROUTE .COMPLEX Qty: 90 1RF Dose Instruction: Take 1 capsule by mouth once daily Patient Comments: HS Rx Instructions: Take 1 capsule by mouth once daily omeprazole 40 mg capsule,delayed release(DR/EC) 40 mg PO DAILY Qty: 90 2RF
--- NOTE | 2024-08-06 08:27 | WPDHPUPDATE1 ---
History and Physical Update Update Date/Time: 08/06/24 08:27 History and Physical has been reviewed, including an updated exam of the patient. There are NO changes in the patient's condition. Risks, benefits, and alternatives have been discussed and questions answered. Patient agrees to proceed with procedure.
[2024-08-06] MEDS: LACTATED RINGERS 1,000 ML 30 ML IV CONT ×2 (13:15→17:10)
[2024-08-06] MEDS: KETOROLAC 15 MG/ML VIAL (*BKC) IV PUSH (13:15)
[2024-08-06] MEDS: ACETAMINOPHEN 500 MG TABLET 1000 MG PO (13:15)
--- NOTE | 2024-08-06 13:23 | P.PNAN_ITS ---
Anes - Initial Pre Proc Eval Procedure: Operation Date: 08/06/24 14:30 Proposed Procedures p Robotic Laparoscopic Repair Left Inguinal Hernia with Mesh - Sharad Charles MD Date/Time: 08/06/24 13:23 Surgeon: Sharad Charles MD Pre Op Diagnosis: left inguinal hernia Patient Data Age: 89 Gender: M Height: 1.78 m Weight: 66 kg Last Vital Signs Temp 36.9 C 08/06/24 13:15 Pulse 56 L 08/06/24 13:15 Resp 14 08/06/24 13:15 BP 173/71 H 08/06/24 13:15 Pulse Ox 99 08/06/24 13:15 O2 Del Method Room Air 08/06/24 13:15 Allergies Allergy/AdvReac Type Severity Reaction Status Date / Time No Known Allergies Allergy Verified 08/06/24 13:18 Home Medications Medication Instructions Recorded Confirmed Type amiodarone 200 mg tablet 200 mg PO DAILY 11/23/19 08/06/24 History aspirin 81 mg tablet,delayed 81 mg PO DAILY 11/23/19 08/06/24 History release atorvastatin 10 mg tablet 10 mg PO DAILY 11/23/19 07/30/24 History cyanocobalamin (vitamin B-12) 500 500 mcg PO DAILY 11/23/19 08/06/24 History mcg tablet ferrous sulfate 325 mg (65 mg 325 mg PO DAILY 11/23/19 08/06/24 History iron) tablet furosemide 20 mg tablet 20 mg PO QAM 11/23/19 07/30/24 History metoprolol succinate 25 mg 25 mg PO QAM 11/23/19 08/06/24 History tablet,extended release 24 hr tamsulosin 0.4 mg capsule See Rx Instructions .Route 02/15/24 07/30/24 Rx .COMPLEX #90 caps omeprazole 40 mg capsule,delayed 40 mg PO DAILY #90 caps 06/08/24 07/30/24 Rx release ascorbic acid (vitamin C) 1,000 mg 1 g PO DAILY 07/30/24 08/06/24 History capsule lisinopril 20 mg tablet 20 mg PO HS 07/30/24 07/30/24 History Patient hx anesthesia problems: none Family hx anesthesia problems: none Results Review: All pre-operative results and documents have been reviewed as part of the pre- operative evaluation. [facility] Past Medical History Medical History AAA (abdominal aortic aneurysm) Anemia due to blood loss, chronic Arteriovenous malformation Arthritis Franco's esophagus BPH (benign prostatic hyperplasia) CAD (coronary artery disease) CHF (congestive heart failure) COPD (chronic obstructive pulmonary disease) GERD (gastroesophageal reflux disease) HTN (hypertension) Hydrocele Paroxysmal A-fib Vitamin B12 deficiency Surgical History Surgical History H/O cataract removal with insertion of prosthetic lens H/O hernia repair Hx of appendectomy Hx of CABG S/P aortic valve replacement Family History Family History Sibling Hypertension Carcinoma of colon Family history of coronary artery disease Father Carcinoma of colon Family history of pancreatic cancer Mother Family history of coronary artery disease Other Cerebrovascular accident Social History Social History Social History: Smoking packs per day: 1 Smoking cigarettes per day: 20.0 Years smoked: 65 Smoking pack-years: 65.00 Smoking status: Current every day smoker Tobacco type: cigarettes Second hand tobacco smoke exposure: No Additional smoking assessment comments: APPROX 1/4-1/2 PACK/DAY CURRENTLY Alcohol intake: current Drinks per week: 14 Substance use: never Substance use type: does not use Current Housing: Decline to Answer Concerned About Future Housing: Decline to Answer Difficulty Paying Gas/Electric Bills: Decline to Answer Difficulty Paying for Meds: Decline to Answer Currently Unemployed: Decline to Answer Education: Decline to Answer Difficulty w/ Childcare or Family Care: Decline to Answer Living arrangements: with family Additional living arrangements comments: Occupation/Education: retired Gender identity (if verbalized by the patient): Male Sexual Orientation (if Verbalized by the Patient): Straight or Heterosexual Spiritual care concerns: No Anes - Eval Final PreProcedure Day of Procedure 08/06/24 13:23 Patient weight: normal Heart: regular rate and rhythm Lungs: clear to auscultation Airway: Mallampati scale class II Neurological: alert and oriented Last oral intake: >/= 8 hours ASA classification: III Emergent: no Anesthetic plan: proceed Anesthesia type and monitoring: general ETT and standard monitoring Results Review: All pre-operative results and documents have been reviewed as part of the pre- operative evaluation. Informed Consent: The patient's anesthetic plan and its attendant risks and benefits were discussed with the patient/family/POA. Questions were solicited and answers provided to the satisfaction of the patient/family/POA.
[2024-08-06] MEDS: ceFAZolin 2 GM/D5W 50 ML 2 GM/50 ML BAG IVPB (14:54)
[2024-08-06] MEDS: BUPIVACAINE/EPINEPHRINE 0.5% 50 ML VIAL 30 ML INFILTRATE (15:38)
--- NOTE | 2024-08-06 17:30 | P.OP_ITS ---
Procedure Note - Detailed Date of Procedure 08/06/24 Pre-op Diagnosis left inguinal hernia Post-op Diagnosis Same Procedure Performed Robotic laparoscopic repair left inguinal hernia with mesh Surgeon Sharad Charles MD Material Crew Supervisor Keo COYNE Anesthesia General and Local Indications Patient has had a large and occasionally painful left inguinal hernia for quite some time. He is taken to surgery now for robotic repair with mesh Findings This was an indirect hernia. The hernia was reduced with difficulty once the patient was under anesthesia. Description of Procedure Patient was taken to surgery and induced into general anesthesia. The abdomen is prepped and draped. Trocars were placed in the usual fashion in the upper abdomen. There were 3 trocars. Patient was placed in Trendelenburg. Mesh and suture were placed in the abdomen. The robot was brought into the field and the camera was docked and targeted. The robotic arms were docked and the working instruments were placed and positioned. The surgeon went to the robotic console. A peritoneal flap was created starting laterally and proceeding anterior and across the peritoneum just above the inguinal canal structures. The flap was developed broadly. Dissection was carried posterior to the rectus muscle on the medial aspect and we were able to locate the pubis and Joe's ligament. Dissecting laterally, the fatty tissue was removed from the peritoneal flap and left on the abdominal wall. Placing traction on the hernia sac, I carefully I carefully dissected the transversalis and any blood vessels or other attachments to the hernia sac using cautery. Eventually I was able to reduce the large hernia sac. Placing traction on it laterally, I was then able to free blood vessels on the sac to the cord structures medially. Using careful dissection, I was able to bloodlessly dissect the hernia sac off the cord structures and then dissect the sac and peritoneum well away from the cord structures and over 4 cm posterior to the lower margin of the hernia. I then went back and dissected out the remainder of Joe's ligament and the pubis. I dissected medially so that an inch of right rectus muscle was exposed. I recheck the entire dissection and all looked good. An extra-large, 17 x 12 cm, mid 3DMax left mesh was then placed over the inguinal canal structures. I sutured the mesh to Joe's ligament medially. I placed 2 additional sutures anteriorly on each side of the inferior epigastric vessels. The sutures placed were 3-0 Vicryl. I then used a 3 0 V lock and closed the peritoneal flap in running fashion. There were a few holes in the flap which I repaired with the remainder of the 3-0 Vicryl. All looked good. We removed the remainder of the suture and the needles. We then removed the instruments and undocked the robot. CO2 was evacuated and the trocars were removed. A scrotal support was placed. The patient was awakened and extubated. He transfer to recovery in good condition. Sponge and needle counts were correct x2. Implants Extra-large left mid 3DMax mesh Estimated Blood Loss -5 Drains No Packing No Pathology None sent Complications None Condition Stable Disposition PACU [facility] Billing Surgery - Charge Forward: Surgery Billing (Robotic laparoscopic repair left inguinal hernia with mesh)
== END 2024-08-06 19:00 | disposition home or self-care (01) ==
PROVIDERS: PCP Family Medicine; Visit Provider Surgery
PROC: 8E0Y4CZ Robotic Assisted Procedure of Lower Extremity, Percutaneous Endoscopic Approach (ICD-10-PCS; CPT 49650; principal; 2024-08-06 14:30)
DX: K40.90 Unilateral inguinal hernia, without obstruction or gangrene, not specified as recurrent (principal); I11.0 Hypertensive heart disease with heart failure; I50.9 Heart failure, unspecified; I25.10 Atherosclerotic heart disease of native coronary artery without angina pectoris; I48.0 Paroxysmal atrial fibrillation; N40.0 Benign prostatic hyperplasia without lower urinary tract symptoms; K21.9 Gastro-esophageal reflux disease without esophagitis; I71.40 Abdominal aortic aneurysm, without rupture, unspecified; E53.8 Deficiency of other specified B group vitamins; Z95.1 Presence of aortocoronary bypass graft; Z95.4 Presence of other heart-valve replacement; F17.210 Nicotine dependence, cigarettes, uncomplicated
CPT/HCPCS: 49650; S2900; A9270; C1781; J0690; J1100; J1885; J2003; J2405; J2704; J3010; J7120

== ENCOUNTER 2024-12-02 13:08 | Outpatient (CLI) | payer MEDICARE, BC, SELFPAY ==
--- OUTSIDE RECORDS SUMMARY | 2024-12-02 13:15 | XMS_ITS | Referral Summary ---
Author Organization [facility] Address [address] [place] [phone] Care Team Providers Care Director Of Casework Name Role Phone Saurabh Marroquin MD Primary Care Provider Allergies No known active allergies Medications nitroglycerin (NITROSTAT) 0.[address] 1 tablet by sublingual route at the 1st sign of attack; may repeat every 5 min until relief; if pain persists after 3 tablets in 15 min, prompt medical attention is recommended 25 1 04/17/20 13 Active aspirin 81 mg tablet take 1 tablet by oral route every day 0 0 08/21/20 13 Active tamsulosin (FLOMAX) 0.4 mg capsule,extend ed release 24hr take 1 capsule by oral route every day 1/2 hour following the same meal each day 0 0 02/08/20 16 Active omeprazole (PriLOSEC) 40 mg capsule take 1 capsule by oral route 2 times every day before a meal 0 04/17/20 13 Active ferrous sulfate 325 mg (65 mg of elemental iron) tabletIndicati ons:Iron Deficiency Anemia Take 1 tablet (325 mg total) by mouth 2 (two) times a day Active cyanocobalamin (Vitamin B-12) 1,000 mcg/mL injection 12/31/19 18 Active lisinopriL (PRINIVIL,ZEST RIL) 20 mg tablet Take 1 tablet (20 mg total) by mouth daily Active metoprolol XL (TOPROL-XL) 25 mg extended release tablet Take 1 tablet by mouth once daily 90 tablet 3 04/17/20 24 Active furosemide (LASIX) 20 mg tablet Take 1 tablet by mouth once daily 90 tablet 1 08/28/20 24 Active atorvastatin (LIPITOR) 10 mg tablet Take 1 tablet by mouth once daily 90 tablet 10/27/19 25 Active amiodarone (PACERONE) 200 mg tablet Take 1 tablet by mouth once daily 90 tablet 11/12/19 25 Active amiodarone (PACERONE) 200 mg tablet Take 1 tablet by mouth once daily 90 tablet 2 02/27/20 24 025 Discontinued Active Problems Problem Noted Date Diagnosed Date Typical atrial flutter ([facility]) 01/09/2018 Dilated cardiomyopathy ([facility]) 01/09/2018 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 08/08/2017 Hx of CABG 08/08/2017 Atrial fibrillation ([facility]) [I48.91] 7 nursing home (current) use of anticoagulants [Z79.0 1] 05/14/2017 Aortic valve stenosis 11/22/2015 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 Social History Tobacco Use Types Packs/Day Years Used Date Smoking Tobacco: Some Days Cigars Smokeless Tobacco: Never Tobacco Cessation:Ready to Q uit: Not Asked; Counseling Given: Not Answered Alcohol Use Standard Drinks/Week Comments Yes 0 (1 standard drink = 0.6 oz pur e alcohol) Sex and Gender Information Value Date Recorded Sex Assigned at Not on file Legal Sex Male 8:57 PM PUNCH BOX TENDER Gender Identity Not on file Sexual Orientation Not on file Last Filed Vital Signs Vital Sign Reading Time Taken Comments Blood Pressure 138/70 03/24/2024 10:45 AM CDT Pulse 50 03/24/2024 10:45 AM CDT Temperature - - Respiratory Rate 16 02/16/2021 10:57 AM CDT Oxygen Saturation 98% 03/24/2024 10:45 AM CDT Inhaled Oxygen Concentration - - Weight 68.9 kg (152 lb) 03/24/2024 10:45 AM CDT Height 177.8 cm (5' 10 ) 03/24/2024 10:45 AM CDT Body Mass Index 21.81 03/24/2024 10:45 AM CDT Plan of Treatment Not on file Insurance MEDICARE MEDICARE [facility] MEDICARE [facility] FEDERAL Care Teams Director Of Casework Relationship Specialty Start Date End Date Saurabh Marroquin MD [address] [facility] [address] [place] [address] PCP - General Family Medicine 04/01/18
--- OUTSIDE RECORDS SUMMARY | 2024-12-02 13:15 | XMS_ITS | Clinical Summary ---
Author Organization [facility] Address [address], [address] [address] Phone Care Team Providers Care Manager Of Corporate Communications Name Role Phone Yonny Wolfe MD Primary Care Provider Keo Huntley DO Unavailable [phone] Allergies No known active allergies Medications metoprolol Succinate (TOPROL-XL) 25 MG TABLET SR 24 HR Take by mouth daily. Active Aspirin 81 MG Tablet Take by mouth daily. Active nitroGLYCERIN (NITRODUR) 0.1 MG/HR PATCH 24 HR by Transdermal route as needed. Active acetaminophen (TYLENOL) 325 MG Tablet Take by mouth as needed. Active ascorbic acid (CVS VITAMIN C) 250 MG Tablet Take by mouth daily. Active clopidogrel (PLAVIX) 75 MG Tablet Take by mouth daily. Active atorvastatin (LIPITOR) 10 MG Tablet Take by mouth daily. Active ferrous sulfate 325 (65 FE) MG Tablet Take by mouth 2 times daily. Active omeprazole (PRILOSEC) 40 MG CAPSULE DELAYED RELEASE Take by mouth 2 times daily. 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 Immunizations Immunization Administration Dates Next Due Covid-19, Mrna, Lnp-s, Pf, 30 Mcg/0.3 Ml Dose (P fizer) 01/05/2021,12/15/2020 Social History Tobacco Use Types Packs/Day Years Used Date Smoking Tobacco: Never Assessed Sex and Gender Information Value Date Recorded Sex Assigned at Not on file Legal Sex Male 12:14 AM CDT Gender Identity Not on file Sexual Orientation Not on file Plan of Treatment Health Maintenance Due Date Last Done Comments Hepatitis C Virus (HCV) Screening 1935 TdaP Immunization 1935 Pneumococcal Immunization (5 0+ years) (1 of 1 - PCV) 1987 Zoster Immunization (1 of 2) 1987 Respiratory Syncytial Virus (RSV) Immunization (Adult) (1 - 1-dose 75+ series) 2012 Influenza Immunization (#1) 2024 06/30/2020 SARS-COV-2 Immunization ( season) 2024 10/18/2021, 01/05/2021, 12/15/2020 Hepatitis B Immunization Aged Out No longer eligible based on patient's age to complete this topic Meningococcal Immunization (ACWY) Aged Out No longer eligible b ased on patient's age to complete this topic Rotavirus Immunization Aged Out No lo nger eligible based on patient's age to complete this topic Insurance MEDICARE [facility] Care Teams Manager Of Corporate Communications Relationship Specialty Start Date End Date Yonny Wolfe MD PCP - General Family Medicine 08/26/17 Keo Huntley DO Gastroenterology 08/26/17
--- OUTSIDE RECORDS SUMMARY | 2024-12-02 13:15 | XMS_ITS | Continuity of Care Document ---
Author Organization [facility] Address [address] [place] [address] [address] [place] [address] Phone Care Team Providers Care Pinsetter Mechanic Automatic Name Role Phone Rosanna Metcalf Unavailable Unavailable Procedures Procedure Date Office/outpatient Visit, Est Advance Directives Directive Yes / No Effective Date File Name No Information Encounters Encounter Description Practice Location Reason(s) For Visit Diagnoses Date Provider Providers Copied on Encounter Office/outpat ient Visit, Est [facility], [address] [place] [address] [address], [place], [place], [id number], [place] tel:[phone] [facility] No Information [address] , [address], [place], [address], [place]. tel:[phone] Family History Family Member Type Diagnosis Age At Onset No Information Payers Payer name Insurance type Covered green party ID Authoriza tion(s) Medicare [facility] [id number] [facility] [id number] Social History Type Description Quantity Date Captured [...]
--- OUTSIDE RECORDS SUMMARY | 2024-12-02 13:15 | XMS_ITS | Clinical Summary ---
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 08/08/2017 Hx of CABG 08/08/2017 Atrial fibrillation ([facility]) [I48.91] 7 custodial (current) use of anticoagulants [Z79.0 1] 05/14/2017 Aortic valve stenosis 11/22/2015 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 Surgical History Surgery Date Site/Laterality Comments APPENDECTOMY Appendectomy VENTRAL HERNIA REPAIR Ventral Hernia Repair CATARACT EXTRACTION cataract surgery INGUINAL HERNIA REPAIR Right Inguinal Hernia Repair Medical History Medical History Date Comments Hx Other Medical Cardiomyopathy Hx Other Medical tobacco use Hx Other Medical hearing loss- h earing aids Hx Other Medical hx ileitis Hx Other Medical anemia- due to upper GI bleed Iron deficiency anemia iron defi ciency Hx Other Medical Franco's esoph mauro Hx Other Medical aortic regurgit ation Hx Other 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 Family History Medical History Relation Name Comments Coronary artery disease Brother 2 Geovany nary Artery Bypass Graft; Colon cancer Father Cancer, colon; Cause of : Cancer, colon Heart attack Mother Myocardial Infa rction; Cause of : Myocardial Infarction Heart attack Sister 2 Myocardial Infa rction; Relation Name Status Comments Brother 1 Alive Brother 2 Father Mother (Age 80) Sister 1 Alive Sister 2 Social History Tobacco Use Types Packs/Day Years Used Date Smoking Tobacco: Some Days Cigars Smokeless Tobacco: Never Tobacco Cessation:Ready to Q uit: Not Asked; Counseling Given: Not Answered Alcohol Use Standard Drinks/Week Comments Yes 0 (1 standard drink = 0.6 oz pur e alcohol) Sex and Gender Information Value Date Recorded Sex Assigned at Not on file Legal Sex Male 8:57 PM SECTION CHIEF Gender Identity Not on file Sexual Orientation Not on file Obstetrics History Last Filed Vital Signs Vital Sign Reading [...] 03/24/2024 10:45 AM CDT Plan of Treatment Health Maintenance Due Date Last Done Comments Depression Screening 1937 Fall Risk Assessment 1937 DTaP/Tdap/Td Vaccine (1 - Tdap) 1948 Hepatitis B Screening 1955 Pneumococcal vaccine 65+ (1 of 2 - PCV) 1956 Zoster Vaccine (1 of 2) 1987 Well Visit 65+ 2002 Covid-19 Vaccine (3 - season) 2024, 12/15/2020 Influenza Vaccine (#1) 2024 06/30/2020 Insurance MEDICARE MEDICARE [facility] MEDICARE [facility] FEDERAL Care Teams Underground Distribution Engineer Relationship Specialty Start Date End Date Saurabh Marroquin MD [address] [address] PCP - General Family Medicine 04/01/18
--- OUTSIDE RECORDS SUMMARY | 2024-12-02 13:15 | XMS_ITS | Clinical Summary ---
Author Organization [facility] Address [address] [place] [address] Care Team Providers Care Hub Lead Name Role Phone Unavailable Primary Care Provider Unavailabl e Social History Tobacco Use Types Packs/Day Years Used Date Smoking Tobacco: Never Assessed Sex and Gender Information Value Date Recorded Sex Assigned at Not on file Legal Sex Male 8:19 PM CDT Gender Identity Not on file Sexual Orientation Not on file Plan of Treatment Health Maintenance Due Date Last Done Comments DTaP, Tdap and Td Vaccines ( 1 - Tdap) 1956 Zoster Vaccines (1 of 2) 1987 Pneumococcal Vaccine: 65+ Ye ars (1 of 1 - PCV) 2002 RSV Immunization or 60+ Years (1 - 1-dose 75+ series) 2012 COVID-19 Vaccine (2023-2 5 season) 2024 Influenza Adult (#1) 2024 Meningococcal B Vaccine Aged Out No l onger eligible based on patient's age to complete this topic Meningococcal Vaccine Aged Out No wolf ilsa eligible based on patient's age to complete this topic RSV Immunizations Under 20 Months Aged Out No longer eligible based on patient's age to complete this topic
--- OUTSIDE RECORDS SUMMARY | 2024-12-02 13:15 | XMS_ITS | Encounter Summary ---
Author Organization [facility] Address [address] [place] [address] Care Team Providers Care Spa Coordinator Name Role Phone Srinivasan Koch Primary Care Provider [phone] Srinivasan Koch Primary Care Provider [phone] Yonny Wolfe MD Primary Care Provider Srinivasan Koch Primary Care Provider [phone] Yonny Wolfe MD Primary Care Provider Saurabh Marroquin MD Primary Care Provider Encounter Details Date Type Department Care Team (Late Contact Info) Description 12/25/2016 Orders Only [facility] ProviderMckayla MD [address] [place] [address] Social History Tobacco Use Types Packs/Day Years Used Date Smoking Tobacco: Every Day Alcohol Use Standard Drinks/Week Comments Yes 0 (1 standard drink = 0.6 oz pur e alcohol) Sex and Gender Information Value Date Recorded Sex Assigned at Not on file Legal Sex Male 8:57 PM SOUND ASSISTANT Gender Identity Not on file Sexual Orientation Not on file documented as of this encounter Plan of Treatment Not on file documented as of this encounter Procedures Procedure Name Priority Date/Time Associated Diagnosis Comments CARDIOLOGY REPORT 12/25/2016 documented in this encounter Results * CARDIOLOGY REPORT (12/25/2016) Anatomical Region Laterality Modality Other Narrative 12/25/2016 Ordered by an unspecified provider. Historical Provider [facility] Final Result documented in this encounter Visit Diagnoses Not on filedocumented in this encounter Care Teams Spa Coordinator Relationship Specialty Start Date End Date Srinivasan Koch [address] [place] [address] PCP - General 01/11/17 01/07/18 Srinivasan Koch [address] [facility] [place] [address] PCP - General 01/02/13 01/10/17 Yonny Wolfe MD [address] [facility] [place] [address] PCP - General Family Practice 01/08/18 02/10/18 Srinivasan Koch [address] [facility] [place] [address] PCP - General Emergency Medicine 02/11/18 02/26/18 Yonny Wolfe MD [address] [facility] [place] [address] PCP - General Family Practice 02/27/18 03/31/18 Saurabh Marroquin MD [address] [place] [address] PCP - General Family Medicine 04/01/18 documented as of this encounter
[2024-12-02 13:52] LABS: Alanine Aminotransferase 15 U/L (6-50); Albumin Level 3.8 g/dL (3.5-5.1); Alkaline Phosphatase 88 U/L (38-126); Anion Gap 10 mmol/L (4-12); Aspartate Amino Transferase 24 U/L (17-59); Bilirubin,Total 0.7 mg/dL (0.2-1.3); Blood Urea Nitrogen 14 mg/dL (9-20); Calcium 8.8 mg/dL (8.4-10.2); Carbon Dioxide 30 mmol/L (22-30); Chloride 100 mmol/L (98-107); Estimated Glomerular Filt Rate > 60; Glucose 95 mg/dL (65-110); Sodium 140 mmol/L (137-145)
== END 2024-12-02 13:09 | disposition home or self-care (01) ==
PROVIDERS: PCP Family Medicine; Visit Provider Family Medicine
DX: I11.0 Hypertensive heart disease with heart failure (principal); I50.9 Heart failure, unspecified
CPT/HCPCS: 36415; 80053

== ENCOUNTER 2025-06-07 10:54 | Outpatient (CLI) | payer MEDICARE, BC, SELFPAY ==
--- OUTSIDE RECORDS SUMMARY | 2007-02-21 03:40 | XMS_ITS | Continuity of Care Document ---
Author Organization [facility] Address [address] [place] [address] [address] [place] [address] Phone Care Team Providers Care Hazard Mitigation Officer Name Role Phone Rosanna Metcalf Unavailable Unavailable Procedures Procedure Date Office/outpatient Visit, Est Advance Directives Directive Yes / No Effective Date File Name No Information Encounters Encounter Description Practice Location Reason(s) For Visit Diagnoses Date Provider Providers Copied on Encounter Office/outpat ient Visit, Est [facility], [address] [place] [address] [address], [place], [place], [id number], [place] tel:[phone] [facility] No Information [address] , [address], [place], [address], [place]. tel:[phone] Family History Family Member Type Diagnosis Age At Onset No Information Payers Payer name Insurance type Covered democrat ID Authoriza tion(s) Medicare [facility] [id number] [facility] [id number] Social History Type Description Quantity Date Captured Comments Sex Male Smoking Status No Information Chief Complaint And Reason For Visit No Information Reason For Referral Reason For Referral No Information History Of Present Illness Encounter Date Complaint History Of Prese nt Illness No Information Functional Status Date Functional Assessmen t No Information Instructions Date Instruction Additional Infor mation No Information Assessments Type Assessment Date No Information Patient Care Teams Name Effective Dates (start - stop) Status Members No Information
[2025-06-07 11:31] LABS: Hematocrit 38.0 % (42.0-52.0); Hemoglobin 12.2 g/dL (14.0-18.0); Mean Corpuscular HGB Conc 32.1 g/dl (32-36); Mean Corpuscular Hemoglobin 31.7 pg (26-34); Mean Corpuscular Volume 98.7 fl (80-100); Platelet Count Result 227 k/mm3 (150-375); Red Blood Count 3.85 M/mm3 (4.6-6.20); White Blood Count 5.6 K/mm3 (4.5-10.0)
[2025-06-07 11:35] LABS: Add Urine Microscopic? YES; Appearance Urine Clear (Clear); Glucose Urine UA Negative (Negative); Leukocyte Esterase Ur Negative LEU/UL (Negative); Nitrate Urine Negative (Negative); Non Pathogenic Casts 0-2; Specific Grav Ur 1.006 (1.001-1.035)
--- OUTSIDE RECORDS SUMMARY | 2025-06-07 11:45 | XMS_ITS | Clinical Summary ---
Author Organization [facility] Address [address] [place] [address] Care Team Providers Care Punch Press Feeder Name Role Phone Saurabh Marroquin MD Primary Care Provider Allergies No known active allergies Medications nitroglycerin (NITROSTAT) 0.[address] 1 tablet by sublingual route at the 1st sign of attack; may repeat every 5 min until relief; if pain persists after 3 tablets in 15 min, prompt medical attention is recommended 07 1104/17/20 13 Active Additional Information Patient taking differently:0.4 mgAs needed, Reported on 01/11/2025 aspirin 81 mg tablet take 1 tablet [...] (20 mg total) by mouth daily Active atorvastatin (LIPITOR) 10 mg tablet Take 1 tablet by mouth once daily 90 tablet 04/19/20 25 Active metoprolol XL (TOPROL-XL) 25 mg extended release tablet Take 1 tablet by mouth once daily 90 tablet 1 04/27/20 25 Active amiodarone (PACERONE) 200 mg tablet Take 1 tablet by mouth once daily 90 tablet 2 05/04/20 25 Active furosemide (LASIX) 20 mg tablet Take 1 tablet by mouth once daily 90 tablet 05/20/20 25 Active furosemide (LASIX) 20 mg tablet Take 1 tablet by mouth once daily 90 tablet 02/24/20 25 025 Discontinued Active Problems Problem Noted Date Diagnosed Date Typical atrial flutter 01/09/2018 Dilated cardiomyopathy 01/09/2018 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 08/08/2017 Hx of CABG 08/08/2017 Atrial fibrillation (CMS/[facility]) [I48.91] 7 assisted (current) use of anticoagulants [Z79.0 1] 05/14/2017 Aortic valve stenosis 11/22/2015 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 Surgical History Surgery Date Site/Laterality Comments APPENDECTOMY Appendectomy VENTRAL HERNIA REPAIR Ventral Hernia Repair CATARACT EXTRACTION cataract surgery INGUINAL HERNIA REPAIR Right Inguinal Hernia Repair CORONARY ARTERY BYPASS GRAFT 12/26/2015 CATARACT EXTRACTION 05/28/2006 ANGIOPLASTY 03/26/2013 CARDIAC VALVE REPLACEMENT 12/26/2015 Medical History Medical History Date Comments Hx Other Medical Cardiomyopathy Hx Other Medical tobacco use Hx Other Medical hearing loss- h earing aids Hx Other Medical hx ileitis Hx Other Medical anemia- due to upper GI bleed Iron deficiency anemia iron defi ciency Hx Other Medical Franco's esoph mauro Hx Other Medical aortic regurgit ation Hx Other 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 Heart disease 10/28/2015 Hypertension 12/31/2015 Cataract Arthritis Family History Medical History Relation Name Comments [...] Years Used Date Smoking Tobacco: Some Days Cigarettes Smokeless Tobacco: Never Tobacco Cessation:Ready to Q uit: No Alcohol Use Standard Drinks/Week Comments Yes 0 (1 standard drink = 0.6 oz pur e alcohol) Sex and Gender Information Value Date Recorded Sex Assigned at Not on file Legal Sex Male 8:57 PM BACKGROUND CHECK COORDINATOR Gender Identity Not on file Sexual Orientation Not on file Obstetrics History Last Filed Vital Signs Vital Sign Reading Time Taken Comments Blood Pressure 132/60 01/11/2025 1:57 PM CDT Pulse 64 01/11/2025 2:24 PM CDT Temperature - - Respiratory Rate 16 02/16/2021 10:57 AM CDT Oxygen Saturation 96% 01/11/2025 1:57 PM CDT Inhaled Oxygen Concentration - - Weight 68.9 kg (152 lb) 01/11/2025 1:57 PM CDT Height 177.8 cm (5' 10) 01/11/2025 1:57 PM CDT Body Mass Index 21.81 01/11/2025 1:57 PM CDT Plan of Treatment Health Maintenance Due Date Last Done Comments Depression Screening 1937 Fall Risk Assessment 1937 DTaP/Tdap/Td Vaccine (1 - Tdap) 1948 Hepatitis B Screening 1955 Pneumococcal vaccine 65+ (1 of 2 - PCV) 1956 Zoster Vaccine (1 of 2) 1987 Well Visit 65+ 2002 Covid-19 Vaccine (3 - season) 2024, 12/15/2020 Influenza Vaccine (#1) 2025 06/30/2020 Insurance MEDICARE MEDICARE [facility] MEDICARE [facility] FEDERAL Care Teams Punch Press Feeder Relationship Specialty Start Date End Date Saurabh Marroquin MD [address] [facility] [address] [place] [address] PCP - General Family Medicine 04/01/18
--- OUTSIDE RECORDS SUMMARY | 2025-06-07 11:45 | XMS_ITS | Clinical Summary ---
Author Organization [facility] Address [address], [address] [address] Phone Care Team Providers Care Screwhead Polisher Name Role Phone Yonny Wolfe MD Primary Care Provider Keo Huntley DO Unavailable [phone] Allergies No known active allergies Medications metoprolol [...] Lnp-s, Pf, 30 Mcg/0.3 Ml Dose (P taniazer) 01/05/2021,12/15/2020 Social History Tobacco Use Types Packs/Day [...] (Adult) (1 - 1-dose 75+ series) 2012 SARS-COV-2 Immunization ( - season) 2024 10/18/2021, 01/05/2021, 12/15/2020 Influenza Immunization (#1) 2025 06/30/2020 Hepatitis B Immunization Aged Out No longer eligible based on patient's age to complete this topic Human Papillomavirus (HPV) Immunization Aged Out No longer eligible b ased on patient's age to complete this topic Meningococcal Immunization (ACWY) Aged Out No longer eligible b ased on patient's age to complete this topic Rotavirus Immunization Aged Out No lo nger eligible based on patient's age to complete this topic Insurance MEDICARE [facility] Care Teams Screwhead Polisher Relationship Specialty Start Date End Date Yonny Wolfe MD PCP - General Family Medicine 08/26/17 Keo Huntley DO Gastroenterology 08/26/17
--- OUTSIDE RECORDS SUMMARY | 2025-06-07 11:45 | XMS_ITS | Encounter Summary ---
Author Organization [facility] Address [address] [place] [address] Care Team Providers Care Mixer Slagman Name Role Phone Srinivasan Koch Primary Care Provider [phone] Srinivasan Koch Primary Care Provider [phone] Yonny Wolfe MD Primary Care Provider Srinivasan Koch Primary Care Provider [phone] Yonny Wolfe MD Primary Care Provider Saurabh Marroquin MD Primary Care Provider Encounter Details Date Type Department Care Team (Late st Contact Info) Description 12/25/2016 Orders Only [facility] Provider, MD Mckayla [address] [place] [address] Social History Tobacco Use Types Packs/Day Years Used Date Smoking Tobacco: Every Day Alcohol Use Standard Drinks/Week Comments Yes 0 (1 standard drink = 0.6 oz pur e alcohol) Sex and Gender Information Value Date Recorded Sex Assigned at Not on file Legal Sex Male 8:57 PM BOAT ENGINE MECHANIC Gender Identity Not on file Sexual Orientation Not on file documented as of this encounter Plan of Treatment Not on file documented as of this encounter Procedures Procedure Name Priority Date/Time Associated Diagnosis Comments CARDIOLOGY REPORT 12/25/2016 documented in this encounter Results * CARDIOLOGY REPORT (12/25/2016) Anatomical Region Laterality Modality Other Narrative 12/25/2016 Ordered by an unspecified provider. us Historical Provider MD [facility] Final Result documented in this encounter Visit Diagnoses Not on filedocumented in this encounter Care Teams Mixer Slagman Relationship Specialty Start Date End Date Srinivasan Koch [address] [place] [address] PCP - General 01/11/17 01/07/18 Srinivasan Koch [address] [place] [address] PCP - General 01/02/13 01/10/17 Yonny Wolfe MD [address] [place] [address] PCP - General Family Practice 01/08/18 02/10/18 Srinivasan Koch [address] [place] [address] PCP - General Emergency Medicine 02/11/18 02/26/18 Yonny Wolfe MD [address] [place] [address] PCP - General Family Practice 02/27/18 03/31/18 Saurabh Marroquin MD [address] [place] [address] PCP - General Family Medicine 04/01/18 documented as of this encounter
[2025-06-07 12:07] LABS: Alanine Aminotransferase 14 U/L (6-50); Albumin Level 4.0 g/dL (3.5-5.1); Alkaline Phosphatase 83 U/L (38-126); Anion Gap 6 mmol/L (4-12); Aspartate Amino Transferase 26 U/L (17-59); Bilirubin,Total 0.7 mg/dL (0.2-1.3); Blood Urea Nitrogen 18 mg/dL (9-20); Calcium 8.9 mg/dL (8.4-10.2); Carbon Dioxide 28 mmol/L (22-30); Chloride 102 mmol/L (98-107); Cholesterol 147 mg/dL (0-200); Estimated Glomerular Filt Rate > 60; Glucose 86 mg/dL (65-110); HDL Direct 60 mg/dL; Potassium 4.0 mmol/L (3.4-5.0); Sodium 136 mmol/L (137-145); Total Protein 6.8 g/dL (6.3-8.2); Triglycerides 93 mg/dL (<150)
[2025-06-07 12:43] LABS: Thyroid Stimulating Hormone 2.080 uIU/mL (0.465-4.680)
== END 2025-06-07 10:55 | disposition home or self-care (01) ==
PROVIDERS: PCP Family Medicine; Visit Provider Family Medicine
DX: E78.5 Hyperlipidemia, unspecified (principal); I11.0 Hypertensive heart disease with heart failure; I25.10 Atherosclerotic heart disease of native coronary artery without angina pectoris; R73.01 Impaired fasting glucose; Z00.00 Encounter for general adult medical examination without abnormal findings; R53.83 Other fatigue
CPT/HCPCS: 36415; 80053; 80061; 81001; 84443; 85027